=== PATIENT | male | born 1965 | race Caucasian/White ===

== ENCOUNTER 2024-01-16 11:50 | Day surgery (SDC) | payer OTHER, SELFPAY ==
--- NOTE | 2024-01-16 | PATH_ITS ---
[facility] Accession Number: [id number] No. of containers..01 Tissue . 01 Material submitted: . colon - SPLENIC FLEXURE POLYP . 01 Diagnosis: SPLENIC FLEXURE POLYP: Tubular adenoma. [facility] 01/18/20241705 Local . 01 Electronically signed: . Howard Champion MD, Pathologist NPI- [id number] . 01 Gross description: . Received in formalin with two patient identifiers and splenic flexure polyp, is a single carlson soft tissue fragment, 0.2 cm in greatest dimension. Submitted in A1. ([id number]) /MRV 01/18/20241705 Local . 01 Pathologist provided ICD-10: D12.3 . 01 CPT . 380879 Specimen Comment: A courtesy copy of this report has been sent to [phone] Performed at: [address] [facility] [id number] MD Howard Champion MD Phone: [phone]
--- NOTE | 2024-01-16 12:34 | PM.HP.1 ---
History of Present Illness History of Present Illness Date Patient Seen: 01/16/24 Time Patient Seen: 12:34 Chief complaint: SDC Narrative: 59-year-old male here for colon cancer screening. Asymptomatic. No family history of colon cancer. [facility] Social History Smoking Status: Never smoker alcohol intake: current Meds Home Medications and Allergies Home Medications Medication Instructions Recorded Confirmed Type escitalopram oxalate 20 mg tablet 20 mg PO DAILY 01/16/24 01/16/24 History Allergies Allergy/AdvReac Type Severity Reaction Status Date / Time shellfish derived Allergy Verified 01/16/24 12:14 Review of Systems Review of Systems ROS: Yes All systems reviewed with the patient and are negative except as otherwise documented Exam Const General: cooperative HENMT Head: normal to inspection Eyes General: appearance normal, both eyes and all related structures Neck Neck: normal visual inspection Chest Chest: normal inspection of the chest Resp Effort & Inspection: normal respiratory effort Cardio Rate: regular rate GI Inspection: normal to inspection Skin General: no rashes or lesions noted Neuro General: patient alert and patient awake Extrem General: normal to inspection and no pedal edema Psych Appearance: grossly normal Assessment & Plan Assessment & Plan narrative: 59-year-old male here for colon cancer screening. Colonoscopy is pursued today. Time-Based Coding :: [TOTAL MINUTES] spent with patient and on the chart (including review of chart, obtaining history, exam, reviewing outside data, placing orders, documenting exam and treatment plan, and counseling patient) on [DATE].
[2024-01-16] MEDS: LACTATED RINGERS 1,000 ML 42 ML IV (12:39)
--- NOTE | 2024-01-16 12:45 | PM.PREOP ---
Pre-operative Note Interval Note History & Physical reviewed/Exam performed by Physician: Yes Changes to H&P: No ASA Class (for procedural sedation): II
--- NOTE | 2024-01-16 13:04 | PM.OP.COLON ---
Operative Date/Time/Diagnoses Date of procedure: 01/16/24 Time of procedure: 13:05 Pre-op diagnosis: Colon cancer screening Post-op diagnosis: same Procedure & Clinicians Study performed: Colonoscopy with cold snare polypectomy Same procedure as scheduled: Yes Indications: Colon cancer screening Surgeon: Hema Rodriguez Procedure Notes SCOAP/Timeout: Done Procedure in detail: After the risks and benefits were explained, written and verbal informed consent was obtained. The patient was brought into the procedure room and placed into the left lateral decubitus position. Please see anesthesia notes for sedation details. Digital rectal examination was accomplished. The scope was introduced into the patient and advanced under direct visualization to the cecum as identified by the appendiceal orifice and ileocecal valve. The scope was slowly withdrawn to carefully examine the mucosa for any defects or lesions. Comprehensive imaging was accomplished throughout the rectum including the dentate line. The colon was decompressed, the scope was then removed from the patient who tolerated the procedure well. Adult colonoscope Bowel prep adequate Scope withdrawal time: 12 minutes Sedation minutes: 23 Complications: none Impression: The patient had evidence of grade 1 internal hemorrhoids with hypertrophied anal papillae. There was a diminutive 3-4 mm sessile polyp around the splenic flexure removed with cold snare. No additional mucosal pathology was appreciated throughout. Terminal ileum was interrogated and appeared visually normal. Endoscopic diagnosis 1. Small colon polyp 2. Mild grade 1 internal hemorrhoids with hypertrophied anal papillae. Post-procedure Plan for aftercare: 1. Await histology. 2. Repeat colonoscopy for screening purposes will likely be suggested for 7-10 years Disposition: PACU
[2024-01-16 13:07] VITALS: BP 123/102; PULSE 67; RESP 14; TEMP 36.4; O2SAT 96
[2024-01-16 13:13] VITALS: BP 130/88; PULSE 67; RESP 12; O2SAT 98
[2024-01-16 13:17] VITALS: BP 149/97; PULSE 64; RESP 14; O2SAT 97
[2024-01-16 13:29] VITALS: BP 137/101; PULSE 64; RESP 15; O2SAT 97
== END 2024-01-16 13:31 | disposition home or self-care (01) ==
PROVIDERS: Referring Provider Internal Medicine Gastroenterology; Visit Provider Internal Medicine Gastroenterology
PROC: 0DJD8ZZ Inspection of Lower Intestinal Tract, Via Natural or Artificial Opening Endoscopic (ICD-10-PCS; CPT 45378; principal; 2024-01-16 13:00)
DX: Z12.11 Encounter for screening for malignant neoplasm of colon (principal); K64.8 Other hemorrhoids; K64.4 Residual hemorrhoidal skin tags; D12.3 Benign neoplasm of transverse colon
CPT/HCPCS: 45385; J2704